=== PATIENT | male | born 1995 | race Asian ===

== ENCOUNTER 2022-02-08 21:04 | Emergency (ER) | payer OTHER ==
[~2022-02-08] VITALS: Ht 172.7 cm; Wt 77.6 kg
[2022-02-08 21:04] VITALS: BP 139/100
[2022-02-08] MEDS ORDERED: MECL25TA18 PO (23:01)
== END 2022-02-09 02:39 | disposition home or self-care (01) ==
LOC: ER 21:04
DX: R42 Dizziness and giddiness (principal); F41.9 Anxiety disorder, unspecified
CPT/HCPCS: 70450; 93005

== ENCOUNTER 2023-11-10 04:25 | Emergency (ER) | payer OTHER ==
[~2023-11-10] VITALS: Ht 172.7 cm; Wt 78.0 kg
[~2023-11-10 04:25] MED LIST: MECL1TAB32 PO
[2023-11-10 07:55] VITALS: BP 141/82; PULSE 97; RESP 16; TEMP 98.4; O2SAT 98
[2023-11-10] MEDS ORDERED: BACITRACIN TOP OINT 1 UD PKG TOP ONE (08:00)
[2023-11-10] MEDS ORDERED: LIDOCAINE W/ EPINEPHRINE 2% INJ 20ML VIAL ID ONE (08:00)
[2023-11-10] MEDS ORDERED: NEOMYCIN-BACITRACIN-POLYM UNITDOSE PKG TOP OINT TOP ONE (08:00)
[2023-11-10] MEDS ORDERED: ACET-1881 PO (08:41)
[2023-11-10] MEDS ORDERED: NAPR-957 PO (08:41)
[2023-11-10] MEDS ORDERED: CEPH500C PO (08:41)
== END 2023-11-10 08:48 | disposition home or self-care (01) ==
LOC: ER 04:25 → EDUNIT# 04:25 → EDBD 04:25 → ER 08:48
DX: S61.411A Laceration without foreign body of right hand, initial encounter (principal); Z79.899 Other long term (current) drug therapy; X58.XXXA Exposure to other specified factors, initial encounter; Y93.89 Activity, other specified; Y92.89 Other specified places as the place of occurrence of the external cause; Y99.8 Other external cause status
CPT/HCPCS: 73120

== ENCOUNTER 2025-07-13 05:31 | Emergency (ER) | payer SELFPAY ==
[~2025-07-13] VITALS: Ht 172.7 cm; Wt 70.2 kg
[2025-07-13 05:31] VITALS: TEMP 98.6
[~2025-07-13 05:31] MED LIST changes: +ACET-1881 PO; +CEPH500C PO; +MECL-90 PO; -MECL1TAB32 PO; +NAPR-957 PO
--- NOTE | 2025-07-13 06:11 | ED.PDOC ---
GI ASSESSMENT HPI Comments This is a 29 year old male presenting to the ED with chief complaint of N/V/D. Patient reports that he woke up at 2am with a headache, but after taking 500mg of Tylenol, he started to have 4 episodes of nausea and vomiting with associated bright red hematemesis. Patient relays that since then, he has had diarrhea. Patient denies any sick contacts, chest pain, SOB, fever, chills, abdominal pain, dizziness, or dysuria. Chief Complaint: Nausea/Vomiting Time Seen by MD: 06:09 Reviewed Notes: Nurses Notes, Medications, Allergies Allergies: Coded Allergies: NO KNOWN ALLERGIES (Unverified , 11/10/23) Home Meds Active Scripts Naproxen (Naproxen) 375 Mg Tab, 1 TAB PO BID for 7 Days, #14 TAB 0 Refills Prov:SCOOBY OLVERA [employer]ATING [employer]ACHINE OPERATOR 11/10/23 Acetaminophen (Acetaminophen) 325 Mg Tab, 650 MG PO QIDP for 10 Days, #80 TAB 0 Refills Prov:SCOOBY OLVERA PLATING MACHINE OPERATOR 11/10/23 Cephalexin Monohydrate (Cephalexin) 500 Mg Cap, 500 MG PO QID for 4 Days, #20 CAP 0 Refills Prov:SCOOBY OLVERA PLATING MACHINE OPERATOR 11/10/23 Meclizine Hcl (Meclizine Hcl) 25 Mg Tab, 25 MG PO BIDP PRN for 5 Days, #10 MG Prov:JENNIFER RILEY MD 02/08/22 Information Source: Patient Mode of Arrival: Ambulatory Timing: Hours Duration: Since onset Prehospital treatment: None Quality: Aching Vomitus: Bright Red Bood Stool: Watery Severity: Moderate Recent: None Recent Hx of: None Pain Location: Epigastric Modifying Factors: Nothing Associated sign and symptoms: Nausea, Vomiting, Diarrhea, Hematemesis, Abdominal Pain Past Medical History PAST MEDICAL HISTORY: Denies Surgical History: Denies all surgeries Family History Family History: Reviewed,noncontributory to illness Social History Smoker: Non-Smoker Alcohol: Denies ETOH Use Drugs: Denies Drug Use Lives In: Home Constitutional: denies: chills, diaphoresis, fatigue, fever, malaise, sweats, weakness, others EENTM: denies: blurred vision, double vision, ear bleeding, ear discharge, ear drainage, ear pain, ear ringing, eye pain, eye redness, hearing loss, mouth pain, mouth swelling, nasal discharge, nose bleeding, nose congestion, nose pain, photophobia, tearing, throat pain, throat swelling, voice changes, others Respiratory: denies: cough, hemoptysis, orthopnea, SOB at rest, shortness of breath, SOB with excertion, stridor, wheezing, others Cardiovascular: denies: chest pain, dizzy spells, diaphoresis, Dyspnea on exertion, edema, irregular heart beat, left arm pain, lightheadedness, palpit ations, PND, syncope, others Gastrointestinal: reports: diarrhea, hematemesis, nausea, vomiting; denies: abdomen distended, abdominal pain, blood streaked bowels, constipated, dysphagia, difficulty swallowing, melena, poor appetite, poor fluid intake, rectal bleeding, rectal pain, others Genitourinary: denies: burning, dysuria, flank pain, frequency, hematuria, incontinence, penile discharge, penile sore, pain, testicle pain, testicle swelling, urgency, others Neurological: reports: headache; denies: dizziness, fainting, left sided numbness, left sided weakness, numbness, paresthesia, pre-existing deficit, right sided numbness, right sided weakness, seizure, speech problems, tingling, tremors, weakness, others Musculoskeletal: denies: back pain, gout, joint pain, joint swelling, muscle pain, muscle stiffness, neck pain, others Integumetry: denies: bruises, change in color, change in hair/nails, dryness, laceration, lesions, lumps, rash, wounds, others Allergic/Immunocompromised: denies: Difficulty Healing, Frequent Infections, Hives, Itching, others Hematologic/Lymphatic: denies: anemia, blood clots, easy bleeding, easy bruising, swollen glands, others Endocrine: denies: excessive hunger, excessive sweating, excessive thirst, excessive urination, flushing, intolerance to cold, intolerance to heat, unexplained weight gain, unexplained weight loss, others Psychiatric: denies: anxiety, bipolar disorder, depression, hopeless, panic disorder, schizophrenia, sleepless, suicidal, others All Other Systems: Reviewed and Negative Physical Exam General Appearance: No Apparent Distress, Normal HEENT: Normal ENT Inspection, Pharynx Normal, TMs Normal, Other (Dry mucous membranes) Neck: Full Range of Motion, Non-Tender, Normal, Normal Inspection Respiratory: Chest Non-Tender, Lungs Clear, No Accessory Muscle Use, No Respiratory Distress, Normal Breath Sounds Cardiovascular: No Edema, No JVD, No Murmur, No Gallop, Normal Peripheral Pulses, Regular Rate/Rhythm Breast Exam: Deferred Gastrointestinal: No Organomegaly, Non Tender, No Pulsatile Mass, Normal Bowel Sounds, Soft Genitalia: Deferred Pelvic: Deferred Rectal: Deferred Extremities: No calf tenderness, Normal capillary refill, Normal inspection, Normal range of motion, Non-tender, No pedal edema Musculoskeletal : Apperance: Normal Neurologic: Alert, oyster preparer II-XII nml as Tested, No Motor Deficits, Normal Affect, Normal Mood, No Sensory Deficits Cerebellar Function: Normal Reflexes: Normal Skin: Dry, Normal Color, Warm Lymphatic: No Adenopathy Was a procedure done? Was a procedure done?: No GI differential Dx Differential Diagnosis: Constipation, Gastroenteritis, GI hemorrhage, Electrolyte Imbalance, Food Poisoning X-Ray, Labs, Meds, VS Vital Signs Date Time Temp Pulse Resp B/P (MAP) Pulse Ox O2 Delivery O2 Flow Rate FiO2 07/13/25 07:47 70 18 98 Room Air 07/13/25 07:47 70 18 109/75 (86) 98 07/13/25 05:31 98.6 71 18 121/85 99 98.6 Lab Test 07/13/25 08:15 07/13/25 05:59 Range/Units Influenza Type A Antigen Negative Negative Influenza Type B Antigen Negative Negative SARS-CoV-2 Antigen (Rapid) Negative NEGATIVE White Blood Count 11.3 H 4.4-10.8 10^3/uL Red Blood Count 5.81 4.5-5.90 10^6/uL Hemoglobin 16.9 13.5-17.5 g/dL Hematocrit 47.8 41.0-53.0 % Mean Corpuscular Volume 82.3 80.0-100.0 fL Mean Corpuscular Hemoglobin 29.1 28.0-32.0 pg Mean Corpuscular Hemoglobin Concent 35.4 32.0-36.0 g/dL Red Cell Distribution Width 13.3 11.8-14.3 % Platelet Count 217 140-450 10^3/uL Mean Platelet Volume 10.3 6.9-10.8 fL Neutrophils (%) (Auto) 81.6 H 37.0-80.0 % Lymphocytes (%) (Auto) 12.0 10.0-50.0 % Monocytes (%) (Auto) 4.5 0.0-12.0 % Eosinophils (%) (Auto) 1.5 0.0-7.0 % Basophils (%) (Auto) 0.4 0.0-2.0 % Neutrophils # (Auto) 9.3 H 1.6-8.6 10 ^3/uL Lymphocytes # (Auto) 1.4 0.4-5.4 10 ^3/uL Monocytes # (Auto) 0.5 0-1.3 10 ^3/uL Eosinophils # (Auto) 0.2 0-0.8 10 ^3/uL Basophils # (Auto) 0 0-0.2 10 ^3/uL Nucleated Red Blood Cells 0.2 % Sodium Level 142 136-145 mmol/L Potassium Level 3.9 3.5-5.1 mmol/L Chloride Level 106 98-107 mmol/L Carbon Dioxide Level 26 20-31 mmol/L Anion Gap 10 5-15 Blood Urea Nitrogen 8 L 9-23 mg/dL Creatinine 0.94 0.700-1.30 mg/dL Glomerular Filtration Rate Calc 114 >90 mL/min BUN/Creatinine Ratio 8.5 L 10.0-20.0 Serum Glucose 100 74-106 mg/dL Calcium Level 9.8 8.7-10.4 mg/dL Current Medications Medications (Trade) Dose Ordered Sig/Dona Route Start Time Stop Time Status Last Admin Sodium Chloride 1,000 ml @ 1,000 mls/hr Q1H ONCE IV 07/13/25 06:15 07/13/25 07:14 DC 07/13/25 06:15 Ondansetron HCl (Zofran) 4 mg ONCE ONCE IV 07/13/25 06:15 07/13/25 06:16 DC 07/13/25 07:49 Famotidine (Pepcid Injection) 20 mg ONCE ONCE IV 07/13/25 06:15 07/13/25 06:16 DC 07/13/25 07:49 Time of 1ST Reevaluation: 07:09 Reevaluation 1ST: Unchanged Patient Education/Counseling: Diagnosis, Treatment Family Education/Counseling: Diagnosis, Treatment SEPSIS Sepsis Screen Date sepsis recognized/suspect: Jul 13, 2025 Time Sepsis recognized/suspect: 530 Recent Procedure: No On Antibiotic Therapy: No Respiratory Rate >20: No Heart Rate >90: No Temp<36 C (96.8 F) or >38.3 C: No SBP <90 or MAP <65 mmHG: No New Acute Mental Status Change: No Is the patient on CPAP, BIPAP,: No Vital Signs Date Time Temp Pulse Resp B/P (MAP) Pulse Ox O2 Delivery O2 Flow Rate FiO2 07/13/25 07:47 70 18 98 Room Air 07/13/25 07:47 70 18 109/75 (86) 98 07/13/25 05:31 98.6 71 18 121/85 99 98.6 Laboratory Tests Test 07/13/25 05:59 White Blood Count 11.3 10^3/uL (4.4-10.8) H Medications Medications Dose Ordered Sig/Dona Route Start Time Stop Time Status Last Admin Dose Admin Famotidine 20 mg ONCE ONCE IV 07/13/25 06:15 07/13/25 06:16 DC 07/13/25 07:49 Ondansetron HCl 4 mg ONCE ONCE IV 07/13/25 06:15 07/13/25 06:16 DC 07/13/25 07:49 Sodium Chloride 1,000 ml @ 1,000 mls/hr Q1H ONCE IV 07/13/25 06:15 07/13/25 07:14 DC 07/13/25 06:15 Departure 1 Departure Time of Disposition: 09:07 (Patient likely with viral gastroenteritis. We will discharge patient home with outpatient follow up) Impression: Primary Impression: Acute viral syndrome Disposition: HOME / SELF CARE / HOMELESS Condition: Stable Additional Instructions: You likely have a viral illness. It is important to stay well rested and well hydrated. For a sore throat you can drink warm tea with honey. You can take [id number] pseudoephedrine for nasal congestion. Please take as directed. For pain you can take the followinam: Ibuprofen 400mg with food Noon: Acetaminophen 1000mg 4pm: Ibuprofen 400mg with food 8pm: Acetaminophen 1000mg You should follow up with your regular doctor within one week to ensure you are doing better. If your symptoms worsen or you have any other concerns then please return to the ER. Discharged With: Self Critical Care Note Critical Care Time?: No Stability Stability form required: No Heart Score Heart Score: Heart Score Response (Comments) Value History N/A 0 EKG N/A 0 Age N/A 0 Risk Factors N/A 0 Troponin N/A 0 Total 0 I personally scribed for ROMAN GUADARRAMA MD ([email or web address]) on 07/13/25 at 06:11. Electronically submitted by Otoniel Canales ([email or web address]). ROMAN GUADARRAMA MD Jul 13, 2025 06:11
[2025-07-13] MEDS: SODIUM CHLORIDE 0.9% 1,000 ML IV ONE (06:15)
[2025-07-13 06:46] LABS: Hematocrit 47.8 % (41.0-53.0); Hemoglobin 16.9 g/dL (13.5-17.5); Mean Corpuscular Hemoglobin 29.1 pg (28.0-32.0); Mean Corpuscular Volume 82.3 fL (80.0-100.0); Nucleated Red Blood Cells % 0.2 %
[2025-07-13 06:52] LABS: Chloride 106 mmol/L (98-107); Potassium 3.9 mmol/L (3.5-5.1); Sodium 142 mmol/L (136-145)
[2025-07-13 06:53] LABS: Anion Gap 10 (5-15); Carbon Dioxide 26 mmol/L (20-31)
[2025-07-13 06:54] LABS: Calcium 9.8 mg/dL (8.7-10.4)
[2025-07-13 06:58] LABS: Glucose 100 mg/dL (74-106)
[2025-07-13 06:59] LABS: BUN/Creatinine Ratio 8.5 (10.0-20.0)
[2025-07-13 07:05] LABS: Blood Urea Nitrogen 8 mg/dL (9-23)
[2025-07-13 07:47] VITALS: BP 109/75; PULSE 70; RESP 18; O2SAT 98
[2025-07-13] MEDS: FAMOTIDINE (10MG/ML) 2ML VL IV ONE (07:49)
[2025-07-13] MEDS: ONDANSETRON HCL 4 MG/2 ML VIAL IV ONE (07:49)
[2025-07-13 09:01] LABS: COVID19 ANTIGEN SOFIA FIA NEGATIVE (NEGATIVE)
[2025-07-13] MEDS ORDERED: ACETAMINOPHEN 325 MG TAB PO ONE ×2 (09:15)
[2025-07-13] MEDS: ACETAMINOPHEN 325 MG TAB PO ONE (09:29)
== END 2025-07-13 09:31 | disposition home or self-care (01) ==
LOC: ER 05:31
DX: B34.9 Viral infection, unspecified (principal); Z20.822 Contact with and (suspected) exposure to COVID-19
CPT/HCPCS: 36415; 80048; 85025; 87426; 87804; 96361; 96374; 96375; 99284; J2405; J3490; J7030